=== PATIENT | female | born 1960 | race African-American/Black ===

== ENCOUNTER 2022-09-23 08:52 | Inpatient (IN) | payer OTHER ==
[2022-09-11 15:21] VITALS: BMI 34.0
[2022-09-23] MEDS ORDERED: MIDAZOLAM HCL 2 MG/2 ML SINGLE DOSE VIAL ONE ×2 (10:56→14:38)
[2022-09-23] MEDS ORDERED: VANCOMYCIN 1,000 MG in DEXTROSE 5%-WATER - 250 ML IVPB ONE (11:00)
[2022-09-23] MEDS ORDERED: TRANEXAMIC ACID 1000 MG/10 ML VIAL IVPUSH ONE (11:00)
[2022-09-23] MEDS ORDERED: CEFAZOLIN 2 GM in DEXTROSE 5%-WATER - 50 ML IVPB ONE (11:00)
[2022-09-23] MEDS ORDERED: BUPIVACAINE LIPOSOME/PF (EXPAREL) 266 MG/20 ML VIAL ONE (11:21)
[2022-09-23] MEDS ORDERED: BUPIVACAINE HCL/PF 2.5 MG/ML - 30 ML VIAL IJ ONE (11:21)
[2022-09-23] MEDS ORDERED: BUPIVACAINE HCL 50 ML ONE (11:43)
[2022-09-23] MEDS ORDERED: VANCOMYCIN 1,000 MG VIAL (RESTRICTED TO ID ONLY) ONE (12:15)
[2022-09-23] MEDS ORDERED: BUPIVICAINE 0.25%/MORPH PF/KETOROLAC - 51ML DISP.SYRINGE IA ONE ×2 (15:05→15:32)
[2022-09-23] MEDS ORDERED: ONDANSETRON 4 MG/2 ML VIAL IVPUSH PRN (15:29)
[2022-09-23] MEDS ORDERED: MAG HYDROX/AL HYDROX/SIMETH 30 ML UNIT-DOSE CUP PO PRN (15:29)
[2022-09-23] MEDS ORDERED: LACTATED RINGERS SOLUTION 1,000 ML IV SCH (15:30)
[2022-09-23] MEDS ORDERED: ACETAMINOPHEN 1000 MG/100 ML BAG IVPB ONE (15:52)
[2022-09-23] MEDS ORDERED: oxyCODONE HCL 5 MG TABLET PO PRN (15:52)
[2022-09-23] MEDS: KETOROLAC TROMETHAMINE 30 MG/1 ML VIAL IVPUSH SCH ×2 (16:40→21:52)
[2022-09-23] MEDS ORDERED: KETOROLAC TROMETHAMINE 30 MG/1 ML VIAL ONE (16:45)
[2022-09-23] MEDS ORDERED: ACETAMINOPHEN INJECTION 100 ML IVPB ONE (16:45)
[2022-09-23] MEDS ORDERED: ALBUTEROL SO4 2.5/IPRATROPIUM 0.5 INH SOL 3 ML VIAL.NEB. NEB PRN (17:49)
[2022-09-23] MEDS: oxyCODONE HCL 5 MG TABLET PO PRN (19:51)
[2022-09-23] MEDS: CEFAZOLIN SODIUM 2 GM in DEXTROSE 5%-WATER 100 ML IVPB SCH (21:40)
[2022-09-23] MEDS: SENNOSIDES/DOCUSATE COMBO (SENNA PLUS) TABLET (UD) PO SCH (21:41)
[2022-09-23] MEDS: GABAPENTIN 300 MG CAPSULE PO SCH (21:41)
[2022-09-23] MEDS: ACETAMINOPHEN 500 MG TABLET (FP) PO SCH (21:41)
[2022-09-23] MEDS: BUDESONIDE/FORMETEROL FUMARATE 160/4.5 mcg INHALER IH SCH (21:43)
[2022-09-23] MEDS ORDERED: MONTELUKAST NA 10 MG TABLET PO SCH (22:00)
[2022-09-23] MEDS ORDERED: ROSUVASTATIN CA 20 MG TABLET PO SCH (22:00)
[2022-09-24] MEDS: ACETAMINOPHEN 500 MG TABLET (FP) PO SCH ×3 (04:00→15:03)
[2022-09-24] MEDS: oxyCODONE HCL 5 MG TABLET PO PRN (05:59)
[2022-09-24] MEDS: CEFAZOLIN SODIUM 2 GM in DEXTROSE 5%-WATER 100 ML IVPB SCH ×2 (06:14→14:07)
[2022-09-24 08:23] LABS: CALCIUM 8.6 mg/dl (8.5-10); CREATININE 1.2 mg/dl (0.55-1.3)
[2022-09-24 08:30] LABS: HEMATOCRIT 37.8 % (32.4-45.2); HEMOGLOBIN 12.5 G/dL (10.7-15.3); MCH 29.8 pg (25.7-33.7); MCHC 32.9 g/dl (32.0-36.0); MEAN CELL VOLUME 90.4 fl (80-96); MEAN PLT VOLUME 7.2 fl (7.5-11.1); PLATELET COUNT 182.8 10^3/uL (134-434); RBC 4.18 10^6/uL (3.60-5.2); RDW 14.8 % (11.6-15.6); WHITE BLOOD COUNT 9.2 10^3/uL (4.0-10.8)
[2022-09-24] MEDS: KETOROLAC TROMETHAMINE 30 MG/1 ML VIAL IVPUSH SCH ×2 (08:45→15:03)
[2022-09-24] MEDS: INSULIN SLIDING SCALE (NOVOLOG) 1 VIAL SQ SCH ×3 (08:51→16:53)
[2022-09-24] MEDS: GABAPENTIN 300 MG CAPSULE PO SCH (09:17)
[2022-09-24] MEDS: SENNOSIDES/DOCUSATE COMBO (SENNA PLUS) TABLET (UD) PO SCH (09:17)
[2022-09-24] MEDS: BUDESONIDE/FORMETEROL FUMARATE 160/4.5 mcg INHALER IH SCH (09:22)
[2022-09-24 09:36] VITALS: RESP 20
[2022-09-24] MEDS ORDERED: METOPROLOL TARTRATE 25 MG TABLET (FP) PO SCH (10:00)
[2022-09-24] MEDS ORDERED: MULTIVITAMINS (DAILY MVI) TABLET (FP) PO SCH (10:00)
[2022-09-24] MEDS ORDERED: PANTOPRAZOLE 40 MG TABLET PO SCH (10:00)
[2022-09-24] MEDS ORDERED: ASPIRIN 325 MG TABLET PO SCH (10:00)
[2022-09-24 18:27] VITALS: BP 123/85; PULSE 87; TEMP 98.1
== END 2022-09-24 18:25 | disposition home or self-care (01) | DRG 302 ==
LOC: FM/S 08:52
PROVIDERS: ADMIT Orthopaedic Surgery Sports Medicine
PROC: 8E0Y0CZ Robotic Assisted Procedure of Lower Extremity, Open Approach (ICD-10-PCS; 2022-09-23)
PROC: 0SRC06A Replacement of Right Knee Joint with Oxidized Zirconium on Polyethylene Synthetic Substitute, Uncemented, Open Approach (ICD-10-PCS; principal; 2022-09-23 14:10)
DX: M17.11 Unilateral primary osteoarthritis, right knee (principal); J44.9 Chronic obstructive pulmonary disease, unspecified; E11.40 Type 2 diabetes mellitus with diabetic neuropathy, unspecified; K21.9 Gastro-esophageal reflux disease without esophagitis; J45.909 Unspecified asthma, uncomplicated
CPT/HCPCS: 36415; 73560-TC-RT-FY; 80048; 82962; 85027; 88305-TC; 88311-TC; 94760; 97010-GP; 97116-GP; 97162-GP

== ENCOUNTER 2022-12-26 06:12 | Day surgery (SDC) | payer OTHER ==
[2022-12-23 16:46] VITALS: BMI 33.6
[2022-12-26] MEDS ORDERED: FENTANYL CITRATE/PF 50 MCG/ML VIAL ONE (07:28)
[2022-12-26] MEDS ORDERED: MIDAZOLAM HCL 2 MG/2 ML SINGLE DOSE VIAL ONE (07:28)
[2022-12-26] MEDS ORDERED: PROPOFOL 20 ML ONE (07:34)
[2022-12-26] MEDS ORDERED: ACETAMINOPHEN 500 MG TABLET (FP) PO ONE (07:55)
[2022-12-26] MEDS ORDERED: oxyCODONE HCL 5 MG TABLET PO PRN (07:56)
[2022-12-26] MEDS ORDERED: ONDANSETRON 4 MG/2 ML VIAL IVPUSH PRN (07:56)
[2022-12-26] MEDS ORDERED: LACTATED RINGERS SOLUTION 1,000 ML IV SCH (08:00)
[2022-12-26] MEDS ORDERED: diphenhydrAMINE HCL 25 MG CAPSULE (FP) PO ONE ×2 (08:49→08:53)
[2022-12-26 08:53] VITALS: RESP 16; TEMP 97.4
[2022-12-26 09:17] VITALS: BP 144/63; PULSE 74
== END 2022-12-26 10:35 | disposition home or self-care (01) ==
LOC: FASU 06:12
PROVIDERS: ATTEND Orthopaedic Surgery Sports Medicine
PROC: 7W06X9Z Osteopathic Treatment of Lower Extremities using Other Method (ICD-10-PCS; principal; 2022-12-26 07:38)
DX: M24.661 Ankylosis, right knee (principal)
CPT/HCPCS: 82962; 94760